=== PATIENT | male | born 1945 | race African-American/Black ===

== ENCOUNTER 2016-07-01 22:11 | Emergency (ER) | payer MEDICARE, OTHER ==
[~2016-07-01 22:11] MED LIST: CARV6.25 PO; HYDR-2672 PO; LISI-334 PO; METF500T4 PO
[2016-07-01 23:32] VITALS: BP 146/80
[2016-07-02] MEDS ORDERED: HYDROCODONE/APAP 7.5/325MG TABLET. PO ONE (00:30)
[2016-07-02] MEDS ORDERED: PREDNISONE 20 MG TABLET PO ONE (00:30)
[2016-07-02] MEDS ORDERED: HYDR-2679 PO (00:45)
[2016-07-02] MEDS ORDERED: PRED50TA PO (00:45)
--- NOTE | 2016-07-02 00:45 | PHYS DOC ---
Past Medical History Past Medical History: Hypertension, Stroke Additional Past Medical Histor: GOUT Past Surgical History: Other Additional Past Surgical Histo: CARDIAC CATH Alcohol Use: Rarely Drug Use: None Adult General Chief Complaint Chief Complaint: FOOT INJURY PAIN HPI HPI Patient is a 71 year old male with history of hypertension, CVA and gout who presents today with left foot pain and swelling that began 2 weeks ago. Patient states he has history of gout. He states he used to take Uloric then the primary care doctor stopped it for 2 years. Patient states the restarted the medicine roughly 2 weeks ago. He states his primary care doctor told him he is gout symptoms may get worse before they get better. Patient states when he got the prescription the pharmacist did not have the medications so he went a couple days without the medication. He states when he got the medications he accidentally took orange juice a couple days ago and he thinks this could've flared up his gout. He states he would like something for pain. Review of Systems Review of Systems Constitutional: Denies fever or chills [] Eyes: Denies change in visual acuity, redness, or eye pain [] HENT: Denies nasal congestion or sore throat [] Respiratory: Denies cough or shortness of breath [] Cardiovascular: No additional information not addressed in HPI [] GI: Denies abdominal pain, nausea, vomiting, bloody stools or diarrhea [] : Denies dysuria or hematuria [] Musculoskeletal: Left foot pain and swelling. Integument: Denies rash or skin lesions [] Neurologic: Denies headache, focal weakness or sensory changes [] Endocrine: Denies polyuria or polydipsia [] Current Medications Current Medications Current Medications Medications (Trade) Dose Ordered Sig/Sourav Start Time Stop Time Status Last Admin Dose Admin Acetaminophen/ Hydrocodone Bitart (Lortab 7.5/325) 2 tab 1X ONCE 07/02/16 00:30 07/02/16 00:31 DC 07/02/16 00:23 2 TAB Prednisone (Prednisone) 60 mg 1X ONCE 07/02/16 00:30 07/02/16 00:31 DC 07/02/16 00:22 60 MG Allergies Allergies Allergies Coded Allergies Type Severity Reaction Last Updated Verified No Known Drug Allergies 08/27/15 No Physical Exam Physical Exam Constitutional: Well developed, well nourished, no acute distress, non-toxic appearance. [] HENT: Normocephalic, atraumatic, bilateral external ears normal, oropharynx moist, no oral exudates, nose normal. [] Eyes: PERRLA, EOMI, conjunctiva normal, no discharge. [] Neck: Normal range of motion, no tenderness, supple, no stridor. [] Cardiovascular:Heart rate regular rhythm, no murmur [] Lungs & Thorax: Bilateral breath sounds clear to auscultation [] Abdomen: Bowel sounds normal, soft, no tenderness, no masses, no pulsatile masses. [] Skin: Warm, dry, no erythema, no rash. [] Back: No tenderness, no CVA tenderness. [] Extremities: Left foot with +2 generalized swelling and tenderness around the MTP joint of the left foot. + 2 left pedal pulse. Cap refill less than 2 seconds and left lower extremity. Neurologic: Alert and oriented X 3, normal motor function, normal sensory function, no focal deficits noted. [] Psychologic: Affect normal, judgement normal, mood normal. [] Current Patient Data Vital Signs Vital Signs Date Time Temp Pulse Resp B/P Pulse Ox O2 Delivery O2 Flow Rate FiO2 07/02/16 00:20 165/84 07/01/16 23:32 98.1 75 20 98 Room Air 98.1 EKG EKG [] Radiology/Procedures Radiology/Procedures [] Course & Med Decision Making Course & Med Decision Making Pertinent Labs and Imaging studies reviewed. (See chart for details) Patient with history of gout presents today with left foot pain and swelling that has been going on for 2 weeks. He was off his Uloric for two years and started taking it a few days ago. He states his doctor told him his pain will get worse before it gets better. Patient is requesting something for pain. Informed patient he can have colchicine but we have to get labs to check his renal function, patient declined and stated he'll follow-up with his own doctor for labs. He was given prednisone and hydrocodone and discharged. He is not able to take NSAIDs. Encouraged him to elevate and ice the extremity. Recommended THU hose soaks if possible. Provided him return precautions and discharged him in stable condition. Dragon Disclaimer Dragon Disclaimer This electronic medical record was generated, in whole or in part, using a voice recognition dictation system. Departure Departure Impression: Primary Impression: Gout Disposition: 01 HOME, SELF-CARE Condition: STABLE Referrals: MEETA RUSHING (PCP) follow up with your doctor on Monday Patient Instructions: Gout, [id number] Additional Instructions: Please follow-up with your own doctor on Monday for gout. Take the prescribed medicines as ordered. Scripts Prednisone 50 Mg Tablet1 Tab PO DAILY #4 TAB Prov:MILAGROS KATE APRN 07/02/16 Hydrocodone/Acetaminophen (Lortab 7.5-325 mg Tablet)1 Each Tablet1 Tab PO PRN Q6HRS PRN PAIN #20 TAB Ref 0 Prov:MILAGROS KATE APRN 07/02/16 Problem Qualifiers Primary Impression: Gout Gout site: toe Gout etiology: unspecified cause Laterality: left Chronicity: chronic Presence of tophus: with tophus Qualified Code: M1A.9XX1 - Chronic gout, unspecified, with tophus (tophi) MILAGROS KATE APRN Jul 02, 2016 00:45
== END 2016-07-02 00:52 | disposition home or self-care (01) ==
LOC: ER 22:11
DX: M1A.9XX1 Chronic gout, unspecified, with tophus (tophi) (principal); I10 Essential (primary) hypertension; Z86.73 Personal history of transient ischemic attack (TIA), and cerebral infarction without residual deficits; Z98.61 Coronary angioplasty status
CPT/HCPCS: 99283; J7512

== ENCOUNTER → 2021-03-24 | Outpatient (CLI) | payer OTHER, MEDICAID ==
[2016-09-15 15:00] VITALS: BP 150/77
[~2021-03-24] MED LIST changes: +CARV25TA2 PO; +FEBU80TA2; -HYDR-2672 PO; +HYDR-2679 PO; +HYDR-2769 PO; -LISI-334 PO; +LISI10TA16 PO; +LISI1TAB37 PO; +LISI20TA18 PO; +METF500T16 PO; -METF500T4 PO; +NITR0.4T24 SL; +PRED50TA PO; +SIMV40TA; +SIMV40TA18 PO; +SITA50TA
--- NOTE | 2021-03-24 16:07 | PDOC1 ---
INITIAL PAIN CONSULT DATE OF SERVICE: DOS: DATE: 03/24/21 TIME: 15:55 CHIEF COMPLAINT: Chief Complaint: Low back and bilateral lower extremity pain HISTORY OF PRESENT ILLNESS: 75-year-old male presents history of pain low back and left greater than right lower extremity for many years getting worse with time and with standing walking patient reports no specific injury or accident that he is aware of but after he had a stroke the pain got more noticeable in the low back patient reports is now constant sharp aching in the low back rating the posterior gluteus and posterior thighs more on the left than the right with some foot drop on the left side as well patient reports that he has had physical therapy in the past which was helpful in 2019 nothing recently patient reports he is not had any other treatments at this time reports he believes he had an MRI scan and describes it but we were unable to find a report of the MRI scan at time of this dictation. Patient also had some injections for his knees which were helpful as well in 2015 patient has had no treatment on the knee since that by his report patient has been taking hydrocodone which was helpful and most recently took it last winter. Patient rates his disability rating 0-10 10 me the worst is a 10 with family responsibilities recreation social activity occupation 7 with sexual have 8 with self-care and life support activities patient reports pain is worse in the evening or when he is on his feet most of the day no overt motor loss but significant fatigability especially in the left lower extremity. Patient reports no bowel or bladder incontinence. PAST MEDICAL HISTORY: PMH: Diabetes, hypertension, coronary artery disease, arthritis PREVIOUS SURGERIES: Past Surgical Hx: None CURRENT MEDICATIONS: Current Meds: Active Scripts Medications Dose Route/Sig Max Daily Dose Days Date Category Dose Instructions Lisinopril 10 Mg Tablet 1 Tab PO DAILY 03/24/21 Reported Nitrostat (Nitroglycerin) 0.4 Mg Tab.subl 0.4 Mg SL PRN Q5MIN PRN 30 09/15/16 Rx Januvia (Sitagliptin Phosphate) 50 Mg Tablet 50 09/15/16 Reported Hydrocodone-Apap 10-325 (Hydrocodone Bit/Acetaminophen) 1 Each Tablet 1 Tab PO PRN Q6HRS PRN 08/27/15 Reported Metformin Hcl 500 Mg Tablet 1 Tab PO BID 08/27/15 Reported hold for 48 hours after cardiac catherization. resume 08/29. ALLERGIES; Allergies: Coded Allergies: No Known Drug Allergies (Unverified , 08/27/15) FAMILY HISTORY: Family Hx: No major medical problems or conditions that he is aware of. SOCIAL HISTORY: Social Hx: Patient does not carol alcohol does not smoke not use any illegal illicit or recreational drugs is single lives locally in [facility] patient reports he is currently on disability related to his pain issue. REVIEW OF SYSTEMS: ROS: Positive for those items mentioned in history of present illness, all systems are reviewed, otherwise negative ,and are complete full and well-documented on patient's chart. PHYSICAL EXAM: VS: Blood pressure is 172/100 pulse 57 respirations 18 temperature is 98.7 F height is 5 foot 11 inches weight is 222 pounds PE: PHYSICAL EXAMINATION: GENERAL: The patient is awake, alert, oriented, appropriate, very pleasant in demeanor HEENT: Shows normocephalic, atraumatic. Extraocular movements are intact and symmetrical. Oral cavity: Mucous membranes moist and pink. NECK: Shows anterior throat supple without palpable lymphadenopathy noted. Swallow reflex symmetrical. CHEST: Shows normal on inspection. Breath sounds are clear bilaterally, coarse and distant but no rales or rhonchi. HEART: Shows S1, S2 clear. No murmurs auscultated. ABDOMEN: Soft, nontender, nondistended, obese. No palpable organomegaly is noted. No rebound or guarding demonstrated. BACK: Shows spine grossly in the midline. Normal-appearing cervical lordotic curvature. There is mildly increased thoracic kyphosis, some flattening of the lumbar lordotic curvature. Lumbar paraspinous muscles show symmetrical on inspection, on palpation shows some moderate tenderness diffusely throughout the upper, middle and lower distribution of the paraspinous muscles bilaterally and also into the lower thoracic paraspinous musculature, firm and tender, but without specific trigger points, without radiation of pain. The patient has go od rotational motion of the lumbar spine, both laterally as well as extension and flexion without significant difficulty. No tenderness over the spinous processes, sacrum or sacroiliac regions. EXTREMITIES: Lower extremities show deep tendon reflexes 1+ in the patellar and tendo calcaneus tendons. Motor exam is 5 on a scale of 5 with right dorsiflexion, extension, quadriceps and hamstring flexion and 4/5 on the left. Peripheral pulses are 1+ posterior tibial. No peripheral edema is noted bilaterally. Lower extremities are warm and dry to touch, equal in color and appearance. The patient is able to stand but needs help getting up from a seated position using the arms of the chair, is using a cane in his right hand to ambulate and does favor his the left lower extremity with an antalgic gait with ambulation. SKIN: Shows warm and dry, good turgor. No edema. No sores, rashes or bruising throughout. IMPRESSION: Impression: 75-year-old male with long history low back and bilateral lower extremity pain worse on the left than the right in a radicular fashion MRI scan pending results at time of this dictation Diabetes Arthritis Hypertension Coronary artery disease Plan: Options were discussed the patient including conservative medical management physical therapies interventional techniques. Patient would like to pursue a most conservative course and we will order physical therapy with lumbar traction stretching strength exercises as well as postural retraining. Once this is completed patient will follow up we did discuss potential for interventional techniques at that time if not significantly improved. Also, will have patient referral back to orthopedics regarding his osteoarthritis of the knees. DANDY COX MD Mar 24, 2021 16:07
== END | disposition home or self-care (01) ==
LOC: PNCL 14:11
PROVIDERS: ATTEND Anesthesiology
DX: M54.50 Low back pain, unspecified (principal); M79.605 Pain in left leg; M79.604 Pain in right leg; E11.9 Type 2 diabetes mellitus without complications; I10 Essential (primary) hypertension; I25.10 Atherosclerotic heart disease of native coronary artery without angina pectoris; M19.90 Unspecified osteoarthritis, unspecified site; M10.9 Gout, unspecified; Z87.891 Personal history of nicotine dependence; Z79.84 Long term (current) use of oral hypoglycemic drugs; Z79.899 Other long term (current) drug therapy; Z98.890 Other specified postprocedural states; Z72.89 Other problems related to lifestyle
CPT/HCPCS: G0463